=== PATIENT | female | born 1985 | race Two or more races ===

== ENCOUNTER 2019-02-20 11:12 | Emergency (ER) | payer MEDICAID ==
[~2019-02-20] VITALS: Ht 182.9 cm; Wt 61.2 kg
--- NOTE | 2019-02-20 11:20 | NUR ---
PT MARIO FROM THE STREET FOR ALOC; PT TO B ED 12, PT ON MONITOR, VSS, EMIR OTED, -SOB, PENDING MD JOSEPH
--- NOTE | 2019-02-20 11:45 | NUR ---
PT WAS AGITATED AND VIOLENT TOWARDS MD AND STAFF. CODE RADHA INITIATED
[2019-02-20] MEDS ORDERED: LORAZEPAM INJ 2 MG/ML VIAL ONE (11:52)
[2019-02-20 11:55] LABS: BASOPHILS # (AUTO) 0.1 /CMM (0.0-0.2); BASOPHILS % (AUTO) 1.2 % (0.0-2.0); HEMATOCRIT 43 % (33-45); LYMPHOCYTES # (AUTO) 1.5 /CMM (0.8-4.8); LYMPHOCYTES % (AUTO) 36.8 % (20.0-44.0); MEAN CORPUSCULAR HGB CONC 33 g/dl (31.0-36.0); MEAN CORPUSCULAR VOLUME 89 fL (82-100); MONOCYTES # (AUTO) 0.6 /CMM (0.1-1.30); MONOCYTES % (AUTO) 13.6 % (2.0-12.0); NEUTROPHILS # (AUTO) 1.7 /CMM (1.8-8.9); NEUTROPHILS % (AUTO) 41.4 % (43.0-81.0); PLATELET COUNT (AUTO) 357 /CMM (150-450); RED BLOOD CELL COUNT(AUTO) 4.81 MIL/uL (4.0-5.2); WHITE BLOOD COUNT (AUTO) 4.2 K/uL (4.3-11.0)
--- NOTE | 2019-02-20 11:55 | NUR ---
MD ORDER FOR ATIVAN 2MG IVP X1. RN/PRIMARY NUE CARRIED OUT.
[2019-02-20] MEDS ORDERED: LORAZEPAM INJ 2 MG/ML VIAL IV ONE (12:00)
[2019-02-20 12:10] LABS: CALCIUM, SERUM 8.5 mg/dL (8.5-10.1); CARBON DIOXIDE 23 mmol/L (21-32); CHLORIDE 105 mmol/L (98-107); CREATININE 0.8 mg/dL (0.6-1.3); GLUCOSE 74 mg/dL (74-106); POTASSIUM 4.8 mmol/L (3.5-5.1); SODIUM SERUM 139 mmol/L (136-145); UREA NITROGEN, BLOOD 17 mg/dL (7-18)
[2019-02-20 12:16] LABS: ALANINE AMINOTRANSFERASE 28 U/L (12-78); ALBUMIN 3.3 g/dL (3.4-5.0); ALCOHOL, BLOOD < 3 mg/dL (0-0); ALKALINE PHOSPHATASE 79 U/L (46-116); ASPARTATE AMINOTRANSFERASE 28 U/L (15-37); BILIRUBIN,DIRECT 0.1 mg/dL (0.0-0.2); BILIRUBIN,TOTAL 0.7 mg/dL (0.2-1.0); TOTAL PROTEIN, SERUM 7.3 g/dL (6.4-8.2)
[2019-02-20 12:17] LABS: SALICYLATE 0.8 mg/dL (2.8-20.0)
[2019-02-20 12:18] LABS: ACETAMINOPHEN 0 ug/ml (10-30)
--- NOTE | 2019-02-20 12:18 | NUR ---
[facility] [phone]
[2019-02-20 12:58] LABS: APPEARANCE,URINE CLEAR (CLEAR); BILIRUBIN,URINE NEGATIVE (NEGATIVE); BLOOD, URINE 2+ Ery/uL (NEGATIVE); COLOR,URINE YELLOW (YELLOW); KETONES,URINE NEGATIVE (NEGATIVE); LEUKOCYTE ESTERASE ,URINE NEGATIVE (NEGATIVE); NITRITE, URINE NEGATIVE (NEGATIVE); PH,URINE 5.5 (5.0-8.0); PROTEIN,URINE NEGATIVE (NEGATIVE); UGLUCOSE NEGATIVE (NEGATIVE); UROBILINOGEN,URINE 0.2 EU/dL (0.2)
[2019-02-20 13:15] LABS: BACTERIA,URINE Rare /HPF (None Seen); SQUAMOUS EPITHELIAL CELL,UR Few /HPF (None Seen); WBC,URINE 0-2 /HPF (0-3)
--- NOTE | 2019-02-20 13:30 | NUR ---
PT IN BED SLEEPING, CALM AND COOPERATIVE AT THIS TIME, VITAL SIGNS UPDATED
[2019-02-20 13:35] VITALS: BP 119/70
--- NOTE | 2019-02-20 19:41 | NUR ---
Patient discharged to home in stable condition. Written and verbal after care instructions given. Patient verbalizes understanding of instruction.Ambulatory with a steady gait
== END 2019-02-20 19:48 | disposition home or self-care (01) ==
LOC: ER 11:14
DX: F23 Brief psychotic disorder (principal)
CPT/HCPCS: 36415; 80048; 80076; 80305; 80307; 80329; 81001; 84703; 85025; 96374; 99284; A6253; A6402; G0480; J2060; 81000-TC